=== PATIENT | female | born 1975 | race Caucasian/White ===

== ENCOUNTER → 2017-11-05 | Outpatient (CLI) | payer BC ==
--- NOTE | 2017-11-05 09:36 | CT ---
EXAMINATION TYPE: CT sinus wo con DATE OF EXAM: 11/05/2017 COMPARISON: CT sinuses 05-30-2007. HISTORY: Patient complains of chronic sinus pain, pressure, and drainage. Chronic sinusitis per order . CT DLP: 641.6 mGycm. Automated Exposure Control for Dose Reduction was Utilized. TECHNIQUE: CT scan of the sinuses is performed without contrast, axial images are obtained, coronal r eformatted images are also reviewed. FINDINGS: There is mild to minimal mucosal thickening involving maxillary sinuses bilaterally, right greater than left. Remainder paranasal sinuses are clear without suspicious opacification or air-flu id levels. The ostiomeatal complex is patent bilaterally on the coronal images. Visualized portion of mastoid air cells show no abnormal opacification. The globes are intact bilate rally. IMPRESSION: No significant acute paranasal sinus disease.
== END | disposition home or self-care (01) ==
LOC: RADCTMAIN 08:42
PROVIDERS: ATTEND Otolaryngology
DX: J32.9 Chronic sinusitis, unspecified (principal)
CPT/HCPCS: 70486

== ENCOUNTER → 2018-04-23 | Outpatient (CLI) | payer BC ==
--- NOTE | 2018-04-23 18:28 | ECHOF ---
Referral Reason:R07.89 chest pain MEASUREMENTS -------- HEIGHT: 170.2 cm WEIGHT: 83.9 kg BP: RVIDd: 2.9 cm (< 3.3) IVSd: 1.2 cm (0.6 - 1.1) LVIDd: 3.7 cm (3.9 - 5.3) LVPWd: 1.2 cm (0.6 - 1.1) IVSs: 1.7 cm LVIDs: 2.1 cm LVPWs: 1.6 cm LAESV Index (A-L): 15.32 ml/m Ao Diam: 2.5 cm (2.0 - 3.7) AV Cusp: 1.8 cm (1.5 - 2.6) LA Diam: 2.9 cm (2.7 - 3.8) MV EXCURSION: 13.666 mm (> 18.000) MV EF SLOPE: 109 mm/s (70 - 150) EPSS: 0.4 cm MV E Balta: 1.06 m/s MV DecT: 180 ms MV A Balta: 0.79 m/s MV E/A Ratio: 1.33 RAP: 5.00 mmHg RVSP: 25.74 mmHg FINDINGS -------- Sinus rhythm. This was a technically adequate study. The left ventricular size is normal. There is mild concentric left ventricular hypertrophy. Overa ll left ventricular systolic function is normal with, an EF between 55 - 60 %. The right ventricle is normal in size and function. Normal LA size by volume 22+/-6 ml/m2. The right atrium is normal in size. The aortic valve is trileaflet, and appears structurally normal. No aortic stenosis or regurgitation. The mitral valve leaflets are mildly thickened. There is trace to mild mitral regurgitation. Trace tricuspid regurgitation present. Right ventricular systolic pressure is normal at < 35 mmHg. There is no evidence of pulmonary hypertension. Trace/mild (physiologic) pulmonic regurgitation. The aortic root size is normal. Normal inferior vena cava with normal inspiratory collapse consistent with estimated right atrial pre ssure of 5 mmHg. There is no pericardial effusion. CONCLUSIONS -------- 1. Sinus rhythm. 2. This was a technically adequate study. 3. The left ventricular size is normal. 4. There is mild concentric left ventricular hypertrophy. 5. Overall left ventricular systolic function is normal with, an EF between 55 - 60 %. 6. Normal LA size by volume 22+/-6 ml/m2. 7. The aortic valve is trileaflet, and appears structurally normal. No aortic stenosis or regurgitati on. 8. The mitral valve leaflets are mildly thickened. 9. There is trace to mild mitral regurgitation. 10. Trace tricuspid regurgitation present. 11. Right ventricular systolic pressure is normal at < 35 mmHg. 12. There is no evidence of pulmonary hypertension. 13. Trace/mild (physiologic) pulmonic regurgitation. 14. The aortic root size is normal. 15. There is no pericardial effusion. CONDITIONER TENDER: José Miguel Cleveland RDCS
--- NOTE | 2018-04-24 09:19 | EST ---
EXERCISE STRESS AGE: 43 SEX: F HT: 5'7" WT: 185 PROTOCOL: Flavio. STAGE: II DURATION OF EXERCISE: 8:00. HEART RATE REST: 79 BLOOD PRESSURE REST: 122/82 MAXIMUM HEART RATE ACHIEVED: 160 MAXIMUM BLOOD PRESSURE: 208/76 85% MPHR: 150 100% MPHR: 177 METS: 9.7. INDICATIONS: CLINICAL INFORMATION: STRESS DATA: Pretesting physical examination showed a heart rate of 79, pressure is 122/82 mmHg. Baseline EKG showed sinus mechanism. The patient exercised on the treadmill according to Flavio protocol for a total of 8 minutes and achieved 9.7 METs. The max heart rate was 160, which is about 90% of maximum predicted heart rate. Maximum blood pressure was 208/76 mmHg. Clinically, the patient did not have any symptoms of chest pain or chest discomfort. The EKG on recovery showed about 0.[address]-segment changes. CONCLUSION: 1. Excellent exercise tolerance. 2. No symptoms of chest pain or chest discomfort in response to exercise. 3. Mild EKG changes and response to exercise. 4. A stress test with imaging modality is recommended for further clarification. MMODL / IJN: [id number] /
== END | disposition home or self-care (01) ==
LOC: RADNMMAIN 11:03
PROVIDERS: ATTEND Family Medicine
DX: I08.1 Rheumatic disorders of both mitral and tricuspid valves (principal); R94.31 Abnormal electrocardiogram [ECG] [EKG]; R07.89 Other chest pain
CPT/HCPCS: 93017; 93306

== ENCOUNTER 2018-08-25 10:19 | Emergency (ER) | payer BC, OTHER ==
--- NOTE | 2018-08-25 10:47 | ED ---
General Adult HPI - General Chief complaint: Abdominal Pain Stated complaint: kidney pain Time Seen by Provider: 08/25/18 10:46 Source: patient, RN notes reviewed Mode of arrival: ambulatory Limitations: no limitations - History of Present Illness Initial comments: 43-year-old female with a past medical history of asthma, hysterectomy presents to the emergency department for a chief complaint of left flank pain 5 hours. Patient states this is a sharp stabbing pain that radiates into her lower abdomen. Patient states she cannot comfortable. Patient admits to nausea but denies vomiting. She states she has dry heaved multiple times. Patient denies dysuria. She denies fevers or chills. Patient states she has intermittently noticed hematuria over the past few weeks. Patient has no other complaints at this time including shortness of breath, chest pain, headache, or visual changes. - Related Data Home Medications Medication Instructions Recorded Confirmed Aspirin/Acetaminophen/Caffeine 2 tab PO Q12H PRN 08/25/18 08/25/18 [Excedrin Migraine Caplet] Lisdexamfetamine Dimesylate 70 mg PO QAM 08/25/18 08/25/18 [Vyvanse] Previous Rx's Medication Instructions Recorded Cephalexin [Keflex] 500 mg PO Q6HR 5 Days cap 08/25/18 HYDROcodone/APAP 5-325MG [[place] 1 tab PO Q6HR PRN #10 tab 08/25/18 5-325] Ondansetron [Zofran ODT] 4 mg PO Q8HR PRN #15 tab 08/25/18 Tamsulosin [Flomax] 0.4 mg PO DAILY #10 cap 08/25/18 Allergies Allergy/AdvReac Type Severity Reaction Status Date / Time milk AdvReac Anaphylaxis Verified 08/25/18 14:31 wheat AdvReac Anaphylaxis Verified 08/25/18 14:31 Review of Systems ROS Statement: Those systems with pertinent positive or pertinent negative responses have been documented in the HPI. ROS Other: All systems not noted in ROS Statement are negative. Past Medical History Past Medical History: Asthma History of Any Multi-Drug Resistant Organisms: None Reported Past Surgical History: Section, Hysterectomy Additional Past Surgical History / Comment(s): Hip x 2, Sinus Past Psychological History: No Psychological Hx Reported Smoking Status: Never smoker Past Alcohol Use History: None Reported Past Drug Use History: None Reported General Exam Limitations: no limitations General appearance: alert, anxious Head exam: Present: atraumatic, normocephalic, normal inspection Eye exam: Present: normal appearance, PERRL, EOMI. Absent: scleral icterus, conjunctival injection, periorbital swelling ENT exam: Present: normal exam, mucous membranes moist Neck exam: Present: normal inspection, full ROM. Absent: tenderness, meningismus, lymphadenopathy Respiratory exam: Present: normal lung sounds bilaterally. Absent: respiratory distress, wheezes, rales, rhonchi, stridor Cardiovascular Exam: Present: regular rate, normal rhythm, normal heart sounds. Absent: systolic murmur, diastolic murmur, rubs, gallop, clicks GI/Abdominal exam: Present: soft, normal bowel sounds. Absent: distended, tenderness, guarding, rebound, rigid Back exam: Present: CVA tenderness (L) (Significant left CVA tenderness). Absent: CVA tenderness (R), vertebral tenderness (No vertebral or midline tenderness) Neurological exam: Present: alert, oriented X3, CN II-XII intact Psychiatric exam: Present: normal affect, normal mood Course Vital Signs 08/25/18 10:37 Temperature 96.7 F L Pulse Rate 55 L Respiratory 24 Rate Blood Pressure 106/67 O2 Sat by Pulse 99 Oximetry Medical Decision Making - Medical Decision Making 43-year-old female since to the emergency department for a chief complaint of left flank pain 6 hours. No history of kidney stones. No dysuria or fevers. On exam patient does have left CVA tenderness, no abdominal tenderness to palpation. CT did show a proximal 4.1 mm left ureter stone with additional stones noted within the kidneys. CBC shows a white count of 16.2 which is likely reactive. CMP is unremarkable. Patient does have small leukocyte esterase with 7 white blood cells, will be treated to cover urinary tract infection. Patient will be given pain medications and Zofran. Patient will follow up with urology in 1-2 days. She will return if she has any worsening symptoms. - Lab Data Result diagrams: 08/25/18 11:55 08/25/18 11:55 Lab Results 08/25/18 08/25/18 08/25/18 Range/Units 11:55 11:55 12:15 WBC 16.2 H (3.8-10.6) k/uL RBC 4.97 (3.80-5.40) m/uL Hgb 14.3 (11.4-16.0) gm/dL Hct 43.8 (34.0-46.0) % MCV 88.0 (80.0-100.0) fL MCH 28.8 (25.0-35.0) pg MCHC 32.8 (31.0-37.0) g/dL RDW 12.7 (11.5-15.5) % Plt Count 361 (150-450) k/uL Neutrophils % 93 % Lymphocytes % 3 % Monocytes % 3 % Eosinophils % 0 % Basophils % 0 % Neutrophils # 15.0 H (1.3-7.7) k/uL Lymphocytes # 0.5 L (1.0-4.8) k/uL Monocytes # 0.5 (0-1.0) k/uL Eosinophils # 0.0 (0-0.7) k/uL Basophils # 0.1 (0-0.2) k/uL Sodium 139 (137-145) mmol/L Potassium 4.8 (3.5-5.1) mmol/L Chloride 107 (98-107) mmol/L Carbon Dioxide 24 (22-30) mmol/L Anion Gap 8 mmol/L BUN 18 H (7-17) mg/dL Creatinine 0.98 (0.52-1.04) mg/dL Est GFR (CKD-EPI)AfAm 82 (>60 ml/min/1.73 sqM) Est GFR (CKD-EPI)NonAf 71 (>60 ml/min/1.73 sqM) Glucose 117 H (74-99) mg/dL Calcium 9.5 (8.4-10.2) mg/dL Total Bilirubin 1.1 (0.2-1.3) mg/dL AST 22 (14-36) U/L ALT 24 (9-52) U/L Alkaline Phosphatase 60 (38-126) U/L Total Protein 7.2 (6.3-8.2) g/dL Albumin 4.4 (3.5-5.0) g/dL Amylase <30 L (30-110) U/L Lipase 34 (23-300) U/L Urine Color Yellow Urine Appearance Clear (Clear) Urine pH 6.0 (5.0-8.0) Ur Specific [place] 1.020 (1.001-1.035) Urine Protein Trace H (Negative) Urine Glucose (UA) Negative (Negative) Urine Ketones 2+ H (Negative) Urine Blood Small H (Negative) Urine Nitrite Negative (Negative) Urine Bilirubin Negative (Negative) Urine Urobilinogen <2.0 (<2.0) mg/dL Ur Leukocyte Esterase Small H (Negative) Urine RBC 32 H (0-5) /hpf Urine WBC 7 H (0-5) /hpf Ur Squamous Epith Cells 3 (0-4) /hpf Urine Mucus Rare H (None) /hpf Disposition Clinical Impression: Ureterolithiasis Disposition: HOME SELF-CARE Condition: Good Instructions: Kidney Stones (ED) Additional Instructions: Please take [place] and Motrin for pain. Please take Zofran for nausea. Follow up with urology in 1-2 days. Take antibiotic as directed. Return to the emergency department if you have any worsening symptoms. Prescriptions: Cephalexin [Keflex] 500 mg PO Q6HR 5 Days cap HYDROcodone/APAP 5-325MG [[place] 5-325] 1 tab PO Q6HR PRN #10 tab PRN Reason: Pain Ondansetron [Zofran ODT] 4 mg PO Q8HR PRN #15 tab PRN Reason: Nausea Tamsulosin [Flomax] 0.4 mg PO DAILY #10 cap Is patient prescribed a controlled substance at d/c from ED?: No Referrals: Romeo Harrington DO [Primary Care Provider] - 1-2 days Alcon Montero MD [STAFF PHYSICIAN] - 1-2 days Time of Disposition: 14:37
[2018-08-25] MEDS ORDERED: ONDANSETRON 4 MG/2 ML VIAL IVP STA (11:03)
[2018-08-25] MEDS ORDERED: MORPHINE SULFATE 4 MG/ML SYRINGE IV STA (11:03)
[2018-08-25] MEDS ORDERED: SODIUM CHLORIDE 0.9% 1,000 ML IV STA ×2 (11:03→13:04)
[2018-08-25] MEDS ORDERED: KETOROLAC 30 MG/ML 1 ML VIAL IVP STA (11:03)
[2018-08-25 12:29] LABS: ALT 24 U/L (9-52); AST 22 U/L (14-36); Albumin 4.4 g/dL (3.5-5.0); Alkaline Phosphatase 60 U/L (38-126); Amylase <30 U/L (30-110); Anion Gap 8 mmol/L; Blood Urea Nitrogen 18 mg/dL (7-17); Calcium 9.5 mg/dL (8.4-10.2); Carbon Dioxide 24 mmol/L (22-30); Chloride 107 mmol/L (98-107); Glucose 117 mg/dL (74-99); Lipase 34 U/L (23-300); Potassium 4.8 mmol/L (3.5-5.1); Sodium 139 mmol/L (137-145); Total Bilirubin 1.1 mg/dL (0.2-1.3); Total Protein 7.2 g/dL (6.3-8.2)
[2018-08-25 12:40] LABS: Basophils # (A) 0.1 k/uL (0-0.2); Basophils % (A) 0 %; Eosinophils % (A) 0 %; HCT 43.8 % (34.0-46.0); HGB 14.3 gm/dL (11.4-16.0); Lymphocytes # (A) 0.5 k/uL (1.0-4.8); Lymphocytes % (A) 3 %; MCH 28.8 pg (25.0-35.0); MCHC 32.8 g/dL (31.0-37.0); Monocytes # (A) 0.5 k/uL (0-1.0); Monocytes % (A) 3 %; Neutrophils % (A) 93 %; Platelet Count 361 k/uL (150-450); RBC 4.97 m/uL (3.80-5.40); RDW 12.7 % (11.5-15.5); WBC 16.2 k/uL (3.8-10.6)
[2018-08-25 12:59] LABS: Appearance,Urine Clear (Clear); Bilirubin,Urine Negative (Negative); Blood,Urine Small (Negative); Color,Urine Yellow; Glucose,Urine (UA) Negative (Negative); Ketones,Urine 2+ (Negative); Leukocyte Esterase,Urine Small (Negative); Mucus,Urine Rare /hpf; Nitrite,Urine Negative (Negative); Protein,Urine Trace (Negative); RBC,Urine 32 /hpf (0-5); Squamous Epithelial Cell,Urine 3 /hpf (0-4); Urobilinogen,Urine <2.0 mg/dL (<2.0); WBC,Urine 7 /hpf (0-5)
--- NOTE | 2018-08-25 13:40 | CT ---
EXAMINATION TYPE: CT abdomen pelvis wo con DATE OF EXAM: 08/25/2018 COMPARISON: NONE HISTORY: Left flank pain CT DLP: 506.70 mGycm Automated exposure control for dose reduction was used. FINDINGS: Lungs are clear. There is no pleural or pericardial fluid. The heart is not enlarged. Within the abdomen, the liver is normal in size. The spleen and gallbladder are normal. Both adrenal glands are normal. Limited views of the pancreas are unremarkable. There is nonobstructing nephrolithiasis present bilaterally. There are approximately 3 calculi in the lower pole calyces of the right kidney with largest measuring 3 mm. There are approximately 4 calcul i on the left with the largest measuring 6 mm. There is mild left-sided hydronephrosis. There is a 4. 1 mm calculus in the proximal left ureter. A second small calcification in the left hemipelvis is patrick pected to be a phlebolith. A nonobstructing distal left calculus is not entirely excluded. There is no significant retroperitoneal, iliac or inguinal adenopathy. The bladder is unremarkable. The left side of the colon is largely collapsed. The appendix is not visualized with certainty. Small bowel loops are of normal caliber. There is no free fluid and no free air. There is an pelvic reconstruction. No acute bony lesion is seen. IMPRESSION: 1. PARTIALLY OBSTRUCTING, 4.1 MM PROXIMAL LEFT URETERIC CALCULUS CAUSING MILD TO MODERATE HYDRONEPHRO SIS ON THE LEFT. 2. BILATERAL, NONOBSTRUCTING NEPHROLITHIASIS. 3. POSTSURGICAL CHANGE INVOLVING THE PELVIS.
--- NOTE | 2018-08-25 14:59 | XR ---
EXAMINATION TYPE: XR KUB DATE OF EXAM: 08/25/2018 COMPARISON: NONE HISTORY: Kidney pain TECHNIQUE: 2 views FINDINGS: 2 upright views were obtained. Bowel gas pattern is normal. There is no sign of intestinal obstruction or pneumoperitoneum. There are multiple faint calcifications over the left kidney. There are are screws apparently from old osteotomies of the left and right iliac bone. There is no evidence of a mass. Lung bases are clear. IMPRESSION: Multiple left renal calculi. Nonacute abdomen.
[2018-08-25 15:35] VITALS: BP 129/80; PULSE 71; RESP 18; TEMP 98.2
== END 2018-08-25 15:35 | disposition home or self-care (01) ==
LOC: EC 10:19
DX: N13.2 Hydronephrosis with renal and ureteral calculous obstruction (principal); Z79.899 Other long term (current) drug therapy; Z91.011 Allergy to milk products; Z91.018 Allergy to other foods; Z90.710 Acquired absence of both cervix and uterus
CPT/HCPCS: 36415; 80053; 82150; 83690; 85025; 81001; 87086; 74018; 74176; 99284; 96374; 96375 ×2; 96361 ×3; J2270; J2405; J1885

== ENCOUNTER 2018-09-02 08:33 | Day surgery (SDC) | payer OTHER ==
[2018-08-30 08:45] VITALS: BMI 27.3
--- NOTE | 2018-09-01 12:31 | P.GSHP ---
History of Present Illness H&P Date: 09/01/18 43 yo female with a 4mm left proximal ureteral stone who comes for eswl left. This is her first stone SHe has multiple tiny stones in the lower pole of each kidney. - Constitutional Constitutional: Denies chills, Denies fever - EENT Eyes: denies blurred vision, denies pain Ears, nose, mouth and throat: Denies headache, Denies sore throat - Cardiovascular Cardiovascular: Denies chest pain, Denies shortness of breath - Respiratory Respiratory: Denies cough, Denies 7 - Gastrointestinal Gastrointestinal: Denies abdominal pain, Denies diarrhea, Denies nausea, Denies vomiting - Genitourinary (Female) Genitourinary: Reports as per HPI, Denies dysuria, Denies hematuria - Genitourinary (Male) Genitourinary: Denies dysuria, Denies hematuria - Musculoskeletal Musculoskeletal: Denies myalgias - Integumentary Integumentary: Denies pruritus, Denies rash - Neurological Neurological: Denies numbness, Denies weakness - Psychiatric Psychiatric: Denies anxiety, Denies depression - Endocrine Endocrine: Denies fatigue, Denies weight change Past Medical History Past Medical History: Asthma Additional Past Medical History / Comment(s): KIDNEY STONES History of Any Multi-Drug Resistant Organisms: None Reported Past Surgical History: Section, Hysterectomy, Orthopedic Surgery Additional Past Surgical History / Comment(s): Hip x 2, Sinus Past Anesthesia/Blood Transfusion Reactions: Motion Sickness, Postoperative Nausea & Vomiting (PONV) Smoking Status: Never smoker - Past Family History Brother(s) Family Medical History: Cancer Medications and Allergies Home Medications Medication Instructions Recorded Confirmed Type Aspirin/Acetaminophen/Caffeine 2 tab PO Q12H PRN 08/25/18 08/30/18 History [Excedrin Migraine Caplet] HYDROcodone/APAP 5-325MG [[place] 1 tab PO Q6HR PRN #10 tab 08/25/18 08/30/18 Rx 5-325] Lisdexamfetamine Dimesylate 70 mg PO QAM 08/25/18 08/30/18 History [Vyvanse] Ondansetron [Zofran ODT] 4 mg PO Q8HR PRN #15 tab 08/25/18 08/30/18 Rx Tamsulosin [Flomax] 0.4 mg PO DAILY #10 cap 08/25/18 08/30/18 Rx Allergies Allergy/AdvReac Type Severity Reaction Status Date / Time milk AdvReac Anaphylaxis Verified 08/30/18 08:36 wheat AdvReac Anaphylaxis Verified 08/30/18 08:36 Surgical - Exam - General well developed, well nourished, no distress - Eyes PERRL - ENT no hearing loss - Neck trachea midline - Respiratory normal expansion, normal respiratory effort - Cardiovascular Rhythm: irregularly irregular - Abdomen Abdomen: soft, non tender - Integumentary no rash, no growths - Neurologic normal coordination, normal sensation - Musculoskeletal normal gait, normal posture - Psychiatric oriented to time, oriented to person, oriented to place, speech is normal, memory intact Results - Imaging CT scan - abdomen: report reviewed, image reviewed CT scan - pelvis: report reviewed, image reviewed Assessment and Plan Assessment: Impression: Left ureteral stone, 4 mm proximal left ureter. Bilateral renal stones asx. Plan: Eswl left to proximal ureteral stone
[~2018-09-02 08:33] MED LIST: LACTATED RINGERS 1,000 ML IV SCH; Pre Op ABX Message 1 EACH MISC MISCELLANE ONE
--- NOTE | 2018-09-02 08:45 | XR ---
EXAMINATION TYPE: XR KUB DATE OF EXAM: 09/02/2018 8:35 AM CLINICAL HISTORY: Kidney stones, presurgical study. TECHNIQUE: Two supine KUB images of the abdomen are obtained. COMPARISON: Abdominal x-ray and CT abdomen and pelvis from 8 days earlier. FINDINGS: Roughly 5-6 small left-sided renal calculi on CT are less well seen on plain films due to m ottled overlying fecal material but are likely stable including roughly 6 mm proximal left ureter felix culus near L4 transverse process. Roughly 4 small calculi through right kidney also are seen better o n CT versus plain films are identified near the L3-L4 disc space medially near region of L3 transvers e process. Extensive surgical change to bilateral iliac bones is redemonstrated. There is overall nonobstructive bowel gas pattern. Spurring and deformity superior acetabulum bilaterally is redemonstrated. Old hea led fracture of right superior pelvic ramus is noted. IMPRESSION: Stable bilateral nephrolithiasis including proximal ureter calculus left kidney measuring roughly [address]
[2018-09-02] MEDS ORDERED: LACTATED RINGERS 1,000 ML IV ONE ×4 (08:51→13:30)
[2018-09-02] MEDS ORDERED: LIDOCAINE 1% 20 ML VIAL (10MG/ML) FOR IV START INTRADERMA ONE (08:51)
[2018-09-02] MEDS ORDERED: ONDANSETRON 4 MG/2 ML VIAL IVP ONE (09:00)
[2018-09-02] MEDS ORDERED: fentaNYL (PF) 50 MCG/ML 2 ML AMP ONE ×2 (09:30→11:52)
[2018-09-02] MEDS ORDERED: MIDAZOLAM 2 MG/2 ML VIAL ONE ×2 (09:30→11:52)
[2018-09-02] MEDS ORDERED: ONDANSETRON 4 MG/2 ML VIAL ONE (09:30)
[2018-09-02] MEDS ORDERED: IOPAMIDOL-370 50ML BTL MISCELLANE ONE (11:47)
[2018-09-02] MEDS ORDERED: KETOROLAC 30 MG/ML 1 ML VIAL ONE (11:52)
[2018-09-02] MEDS ORDERED: PROPOFOL 10 MG/ML 20 ML VIAL IV ONE (11:52)
[2018-09-02] MEDS ORDERED: LIDOCAINE 1% INJ 10MG/ML (20 ML MDV) ONE (11:52)
[2018-09-02] MEDS ORDERED: SODIUM CHLORIDE 0.9% 50 ML with ceFAZolin 2,000 MG IV ONE ×2 (12:11)
--- NOTE | 2018-09-02 13:18 | P.OP ---
Date of Procedure: 09/02/18 Preoperative Diagnosis: Left ureteral calculus, left renal calculi Postoperative Diagnosis: Same Procedure(s) Performed: Cystoscopy, left ureteroscopy with Holmium laser lithotripsy, left ureteral stent insertion Anesthesia: RYANA Surgeon: Hung Connor Estimated Blood Loss (ml): 0 IV fluids (ml): 500 Pathology: none sent Condition: stable Disposition: PACU Indications for Procedure: The patient is a 43-year-old white female with recent left renal colic due to a 5 mm left proximal ureteral calculus. She was also noted to have several left renal calculi. She was scheduled to undergo ESWL, but the ureteral calculus could not be seen on fluoroscopy. It was thus decided to perform ureteroscopic calculi instead. Operative Findings: Left proximal ureteral calculus. Multiple left renal calculi. All calculi fragmented to completion. Description of Procedure: The patient was taken to the operating room and placed in the dorsolithotomy position, with legs supported in Brandon stirrups. The external genitalia was prepped and draped sterilely. The 30 lens was used to introduce the 22-Andorran Stortz cystoscopic sheath through the urethra and into the bladder under direct vision. The bladder was examined in its entirety. Both ureteral orifices were normal anatomic location and configuration. The entire bladder was examined. No tumors or foreign bodies were seen. A 0.038 inch Glidewire was passed through the cystoscope. The left ureteral orifice was cannulated, and the Glidewire was advanced up to the left renal pelvis. An 11/13-And[place]ran ureteral access catheter was passed over the wire, up to the mid ureter. The Olympus flexible ureteroscope was passed through the ureteral access catheter sheath and was advanced under direct vision. The calculus was identified. The 200 micron Holmium laser probe was passed through the ureteroscope, and lithotripsy was performed. After fragmenting the ureteral calculus, the ureteroscope was advanced up to the left renal pelvis. Two upper pole calculi were identified, both of which were laser fragmented to completion. Attention was then paid to the lower pole calyces. 3 calculi were seen and fragmented to completion. Lithotripsy was continued until all calculus fragments were no larger than 1-2 mm in diameter. The ureteroscope was then removed. The Glidewire was passed through the ureteral access cath sheath, and the sheath was removed. The Glidewire was backloaded into the cystoscope, which was passed into the bladder. A 26 cm, 4.8-Andorran double-J ureteral stent was placed over the wire. Proper stent positioning was verified fluoroscopically and endoscopically. The bladder was emptied and the cystoscope removed. The patient tolerated the procedure well and was taken to the recovery room in stable condition.
[2018-09-02 13:34] VITALS: TEMP 97
[2018-09-02 13:40] VITALS: RESP 16
[2018-09-02 14:00] VITALS: PULSE 59
[2018-09-02 14:52] VITALS: BP 155/81
--- NOTE | 2018-09-02 15:01 | FL ---
EXAMINATION TYPE: FL cystogram DATE OF EXAM: 09/02/2018 COMPARISON: CT abdomen pelvis from January days ago HISTORY: Obstructing left ureter calculus TECHNIQUE: Fluoroscopy. FINDINGS: Fluoroscopic guidance was provided during ureter stent insertion procedure performed by Dr Manjinder Connor. A total of 340 seconds of fluoroscopic time was utilized during the procedure and single s pot fluoroscopic image is acquired. Single image acquired shows proximal portion of the ureter stent. IMPRESSION: As Above.
== END 2018-09-02 15:07 | disposition home or self-care (01) ==
LOC: ORWHC2ENDO 08:33
PROVIDERS: ATTEND Urology
DX: N20.2 Calculus of kidney with calculus of ureter (principal); J45.909 Unspecified asthma, uncomplicated; Z79.899 Other long term (current) drug therapy; Z87.442 Personal history of urinary calculi; Z79.891 Long term (current) use of opiate analgesic; Z91.018 Allergy to other foods
CPT/HCPCS: 74430; 74018; 52356; C2625; C1758; C1769 ×2; J2250; J2405; J2001; J3010; J1885; J0690; J2704

== ENCOUNTER → 2018-09-06 | Outpatient (CLI) | payer OTHER ==
--- NOTE | 2018-09-06 08:51 | XR ---
EXAMINATION TYPE: XR abdomen 1V DATE OF EXAM: 09/06/2018 HISTORY: Pain Comparison: 09/02/2018 Single KUB is submitted for interpretation. Findings: Right renal calculi: None Visualized. Right ureteral calculi: None Visualized. Left renal calculi: There is left-sided nephrolithiasis. Mid pole calculus measures 5.9 mm with an a djacent calculus noted to measure 3.6 mm. Several small left lower pole calculi measuring up to 2.8 m m. Left ureteral calculi: Interval placement of a double pigtail left ureteral stent. Placement is appr opriate. No calcific density along the course of the left-sided stent. Pelvic calcifications: None Visualized. Bowel gas pattern is unremarkable. No free air. No mass effects. IMPRESSION: 1. Left-sided nephrolithiasis and left ureteral stent.
== END | disposition home or self-care (01) ==
LOC: RADXRMAIN 08:31
PROVIDERS: ATTEND Urology
DX: N20.0 Calculus of kidney (principal); Z96.0 Presence of urogenital implants
CPT/HCPCS: 74018

== ENCOUNTER 2021-03-07 06:27 | Day surgery (SDC) | payer OTHER ==
[2021-03-03 12:28] VITALS: BMI 28.1
[~2021-03-07 06:27] MED LIST changes: +DEXAMETHASONE SOD PHOSPHATE 4 MG/ML 1 ML VIAL IV ONE; +HEPARIN SODIUM,PORCINE/PF 5,000 UNIT/0.5 ML SYRINGE SQ PRN; +HYDROmorphone 0.5 MG/0.5 ML SYRINGE IVP PRN; +ONDANSETRON 4 MG/2 ML VIAL IVP ONE
--- NOTE | 2021-03-07 07:11 | P.GSHP ---
History of Present Illness H&P Date: 03/07/21 CHIEF COMPLAINT: Scalp mass HISTORY OF PRESENT ILLNESS: The patient is a 46 year-old female with history of cyst on the scalp. She presents today for surgical excision. PAST MEDICAL HISTORY: Please see list. PAST SURGICAL HISTORY: Please see list. MEDICATIONS: Please see list. ALLERGIES: Please see list. SOCIAL HISTORY: No illicit drug use FAMILY HISTORY: No reports of Crohn disease or ulcerative colitis. REVIEW OF ORGAN SYSTEMS: CONSTITUTIONAL: No reports of fevers or chills. GI: Denies any blood in stools or constipation. PHYSICAL EXAM: VITAL SIGNS: Stable Musculoskeletal: No clubbing cyanosis or edema GENERAL: Well developed and in no acute distress. Pleasant. HEENT: No sclera icterus. Extraocular movements grossly intact. Moist buccal mucosa. Head is atraumatic, normocephalic. Hears conversational speech. No nasal drainage. Skin: 3 cm lesion along the mid scalp and a 4 cm lesion along the frontal hair line. Lesions are fixed and not easily mobile. NECK: Supple without lymphadenopathy. No JV distention. CHEST: Non-labored respirations and equal bilateral excursions. CARDIOVASCULAR: Regular rate and rhythm. Palpable 2+ radial pulses. ABDOMEN: Soft. Non-tender. Nondistended. NEUROLOGIC: No focal or lateralizing signs. PSYCH: Appropriate affect. Alert and oriented to person, place and time. ASSESSMENT: 1. Pilar cyst x2. PLAN: 1. Excision of pilar cyst was described. Risk of hair loss and alopecia was also reviewed. 2. Time of recovery at least one week was described. 3. Wound care instructions using Bacitracin ointment was reviewed. Avoiding hair dye for 2-3 weeks was also described. 4. Proceeding under sedation versus LMA was also reviewed. Past Medical History Past Medical History: Asthma, Pneumonia Additional Past Medical History / Comment(s): hx KIDNEY STONES, occ migraines, heart murmer, History of Any Multi-Drug Resistant Organisms: None Reported Past Surgical History: Section, Hysterectomy, Orthopedic Surgery Additional Past Surgical History / Comment(s): surgery to remove kidney stone, charline hip reconstruction hip sockets, sinus surgery, C/S x 2 Past Anesthesia/Blood Transfusion Reactions: Motion Sickness, Postoperative Nausea & Vomiting (PONV) Smoking Status: Never smoker - Past Family History Brother(s) Family Medical History: Cancer Medications and Allergies Home Medications Medication Instructions Recorded Confirmed Type Aspirin/Acetaminophen/Caffeine 2 tab PO Q12H PRN 08/25/18 03/03/21 History [Excedrin Migraine Caplet] Lisdexamfetamine Dimesylate 70 mg PO QAM 08/25/18 03/07/21 History [Vyvanse] ALPRAZolam [Xanax] 1 mg PO TID PRN 03/03/21 03/07/21 History Cetirizine HCl [Zyrtec] 10 mg PO HS 03/03/21 03/07/21 History Furosemide [Lasix] 20 mg PO DAILY PRN 03/03/21 03/07/21 History Proair Inhaler 2 appful IH QID PRN 03/03/21 03/07/21 History Allergies Allergy/AdvReac Type Severity Reaction Status Date / Time milk AdvReac Anaphylaxis Verified 03/03/21 12:18 wheat AdvReac Anaphylaxis Verified 03/03/21 12:18 Surgical - Exam Vital Signs Temp Pulse Resp BP Pulse Ox 98.0 F 78 16 151/86 97 03/07/21 06:53 03/07/21 06:53 03/07/21 06:53 03/07/21 06:53 03/07/21 06:53
[2021-03-07] MEDS ORDERED: LIDOCAINE 1%-EPI 1:100,000 20 ML VIAL SQ ONE ×2 (07:29→08:08)
[2021-03-07] MEDS ORDERED: BACITRACIN ZINC 500 UNIT/GM OINT 28.4 GM TUBE TOPICAL ONE (08:08)
[2021-03-07] MEDS ORDERED: fentaNYL (PF) 50 MCG/ML 2 ML AMP ONE (08:51)
[2021-03-07] MEDS ORDERED: PROPOFOL 10 MG/ML 20 ML VIAL IV ONE (08:51)
[2021-03-07] MEDS ORDERED: LIDOCAINE 1% INJ 10MG/ML (20 ML MDV) ONE (08:51)
[2021-03-07] MEDS ORDERED: SUCCINYLCHOLINE CHLORIDE 100 MG/5 ML SYR IV ONE (08:51)
[2021-03-07] MEDS ORDERED: MIDAZOLAM 2 MG/2 ML VIAL ONE (08:51)
[2021-03-07 08:53] VITALS: TEMP 97
[2021-03-07] MEDS ORDERED: SCOPOLAMINE 1.5MG/72HR PATCH TRANSDERM PRN (08:53)
[2021-03-07] MEDS ORDERED: DEXAMETHASONE SOD PHOSPHATE 10 MG/ML 1 ML VIAL IV PRN (08:53)
[2021-03-07 09:02] VITALS: RESP 16
--- NOTE | 2021-03-07 09:03 | P.OP ---
Date of Procedure: 03/07/21 Description of Procedure: SURGEON: BRITTANY JONES MD PREOPERATIVE DIAGNOSES: 1. Anterior parietal scalp tumor, 4 cm 2. Posterior parietal scalp tumor, 2 cm 3. Migraines 4. Asthma POSTOPERATIVE DIAGNOSES: 1. Anterior parietal scalp tumor, 4 cm 2. Posterior parietal scalp tumor, 2 cm 3. Migraines 4. Asthma PROCEDURES PERFORMED: 1. Excision of anterior parietal scalp tumor, 4 cm, fascia with intermediate closure, 4-cm 2. Excision of posterior parietal scalp tumor, 2 cm fascia with intermediate closure, 2-cm Anesthesia: GETA, local Estimated Blood Loss (ml): 20 Pathology: other (anterior and posterior scalp mass) Condition: stable Disposition: same day COMPLICATIONS: None. Operative Findings: 1. Excision of fascial scalp tumors with skin flaps for closure 4 cm and 2 cm. INDICATIONS: The patient is a 46-year-old female who presents with scalp tumors. Benefits and risks of surgical intervention were described including bleeding, infection. Informed consent was obtained. DESCRIPTION OR PROCEDURE: In the preoperative area, the area of concern was marked with indelible marker. Patient was brought into the operating room in supine position. After general induction, the scalp was prepped and draped in a standard sterile fashion with betadine and hibiclens. Timeout protocol was confirmed with the surgical team regarding the patient's name, procedure to be performed including preoperative medications. A field block was placed of the anterior and posterior parieteal scalp tumors of 4-cm and 2-cm. Longitudinal incisions using #15 blade were made along the markings into the deep subcutaneous tissue. All tumors extended to the fascia with dissection and elevation of the tumors. Hemostasis was checked with gauze without use of cautery. Skin flaps were re-approximated for each incision using running suture of 3-0 Prolene. The scalp was washed with hibiclens. The skin was cleansed with hydrogen peroxide followed by bacitracin ointment along the closure. At the end of the procedure, needle, sponge, and instrument count was verified correct by surgical services assistant. The patient tolerated the procedure well. Plan - Discharge Summary Discharge Rx Participant: Yes New Discharge Prescriptions: New Ibuprofen [Motrin] 600 mg PO Q8HR PRN #30 tab PRN Reason: Pain Acetaminophen Tab [Tylenol Tab] 1,000 mg PO Q6HR PRN #30 tablet PRN Reason: Pain Continue Lisdexamfetamine Dimesylate [Vyvanse] 70 mg PO QAM Aspirin/Acetaminophen/Caffeine [Excedrin Migraine Caplet] 2 tab PO Q12H PRN PRN Reason: Migraine Headache Furosemide [Lasix] 20 mg PO DAILY PRN PRN Reason: Edema Cetirizine HCl [Zyrtec] 10 mg PO HS ALPRAZolam [Xanax] 1 mg PO TID PRN PRN Reason: Anxiety Proair Inhaler 2 appful IH QID PRN PRN Reason: sob Discharge Medication List Aspirin/Acetaminophen/Caffeine [Excedrin Migraine Caplet] 2 tab PO Q12H PRN 08/25/18 [History] Lisdexamfetamine Dimesylate [Vyvanse] 70 mg PO QAM 08/25/18 [History] ALPRAZolam [Xanax] 1 mg PO TID PRN 03/03/21 [History] Cetirizine HCl [Zyrtec] 10 mg PO HS 03/03/21 [History] Furosemide [Lasix] 20 mg PO DAILY PRN 03/03/21 [History] Proair Inhaler 2 appful IH QID PRN 03/03/21 [History] Acetaminophen Tab [Tylenol Tab] 1,000 mg PO Q6HR PRN #30 tablet 03/07/21 [Rx] Ibuprofen [Motrin] 600 mg PO Q8HR PRN #30 tab 03/07/21 [Rx] Follow up Appointment(s)/Referral(s): Brittany Jones MD [STAFF PHYSICIAN] - 03/15/21 Patient Instructions/Handouts: Scalp Lesion (GEN), Cold Compress or Soak (DC) Activity/Diet/Wound Care/Special Instructions: EXPECT BRUISING FOR 1 WEEK Sleep on elevated pillow at least 2-3 Diet as tolerated Use Tylenol scheduled for the next 24-48 hours for best pain relief. Use ice along incisions for today to prevent swelling. Discharge Disposition: HOME SELF-CARE
[2021-03-07 10:12] VITALS: BP 150/93; PULSE 77
== END 2021-03-07 10:36 | disposition home or self-care (01) ==
LOC: OR 06:27
PROVIDERS: ATTEND Surgery Plastic and Reconstructive Surgery
DX: L72.11 Pilar cyst (principal); J45.909 Unspecified asthma, uncomplicated; G43.909 Migraine, unspecified, not intractable, without status migrainosus; Z79.82 Long term (current) use of aspirin; Z79.899 Other long term (current) drug therapy; Z91.011 Allergy to milk products; Z91.018 Allergy to other foods
CPT/HCPCS: 88304; 11426; 12032; J2250; J1100; J0690; J2405; J2001; J3010; J0330; J2704; J1644

== ENCOUNTER → 2021-07-19 | Outpatient (CLI) | payer OTHER ==
--- NOTE | 2021-07-19 15:09 | EST ---
EXERCISE STRESS AGE: 46 SEX: F HT: 67" WT: 190 lbs. PROTOCOL: Flavio STAGE: 3 DURATION OF EXERCISE: 7:00 HEART RATE REST: 65 BLOOD PRESSURE REST: 148/93 MAXIMUM HEART RATE ACHIEVED: 159 MAXIMUM BLOOD PRESSURE: 196/115 85% MPHR: 148 100% MPHR: 174 METS: 8.9 INDICATIONS: Chest pain. STRESS DATA: Heart rate 65, pressure is 148/93 mmHg. Baseline EKG showed sinus mechanism. The patient exercised on the treadmill according to Flavio protocol for a total of 7 minutes and achieved 8.9 METS. Max heart rate was 161, which is about 93% of maximum predicted heart rate with maximum blood pressure of 196/115 mmHg. Clinically the patient developed chest tightness in response to exercise. The EKG showed ST changes concerning for ischemia. CONCLUSION: 1. Good exercise tolerance. 2. Chest discomfort in response to exercise. 3. Abnormal EKG in response to exercise. 4. Overall abnormal stress test for the patient. 5. Dr. Harrington was notified via phone. MMODL / IJN: [id number] /
== END | disposition home or self-care (01) ==
LOC: RADNMMAIN 08:30
PROVIDERS: ATTEND Family Medicine
DX: R94.31 Abnormal electrocardiogram [ECG] [EKG] (principal)
CPT/HCPCS: 93017

== ENCOUNTER → 2021-08-15 | Outpatient (CLI) | payer OTHER ==
[2021-08-15 09:46] LABS: African American GFR (CKD) >90 (>60 ml/min/1.73 sqM); Anion Gap 6 mmol/L; Blood Urea Nitrogen 15 mg/dL (7-17); Carbon Dioxide 27 mmol/L (22-30); Chloride 105 mmol/L (98-107); Non-African American GFR(CKD) 89 (>60 ml/min/1.73 sqM); Potassium 4.5 mmol/L (3.5-5.1); Sodium 138 mmol/L (137-145)
[2021-08-15 10:28] LABS: HCT 43.9 % (34.0-46.0); HGB 15.2 gm/dL (11.4-16.0); MCH 30.5 pg (25.0-35.0); MCHC 34.5 g/dL (31.0-37.0); MCV 88.3 fL (80.0-100.0); Mean Platelet Volume 8.1; Platelet Count 353 k/uL (150-450); RBC 4.97 m/uL (3.80-5.40); RDW 13.1 % (11.5-15.5); WBC 7.6 k/uL (3.8-10.6)
== END | disposition home or self-care (01) ==
LOC: LABPAT 08:45
PROVIDERS: ATTEND Internal Medicine Interventional Cardiology
DX: Z01.812 Encounter for preprocedural laboratory examination (principal); R07.9 Chest pain, unspecified
CPT/HCPCS: 80051; 82565; 84520; 85027

== ENCOUNTER 2021-08-19 06:33 | Day surgery (SDC) | payer OTHER ==
[2021-08-17 10:27] VITALS: BMI 29.7
[~2021-08-19 06:33] MED LIST changes: +ALPRAZolam 0.25 MG TAB PO PRN; +ALPRAZolam 0.5 MG TAB PO PRN; +ASPIRIN 325 MG TAB PO STA; -DEXAMETHASONE SOD PHOSPHATE 4 MG/ML 1 ML VIAL IV ONE; +HEPARIN SODIUM,PORCINE 10,000 UNIT in SODIUM CHLORIDE 0.9% 1,000 ML IRRIGATION PRN; +HEPARIN SODIUM,PORCINE 2,500 UNIT in SODIUM CHLORIDE 0.9% 250 ML IRRIGATION PRN; -HEPARIN SODIUM,PORCINE/PF 5,000 UNIT/0.5 ML SYRINGE SQ PRN; -HYDROmorphone 0.5 MG/0.5 ML SYRINGE IVP PRN; -LACTATED RINGERS 1,000 ML IV SCH; +NITROGLYCERIN SL TABS 0.4 MG TAB SUBLINGUAL PRN; -ONDANSETRON 4 MG/2 ML VIAL IVP ONE; -Pre Op ABX Message 1 EACH MISC MISCELLANE ONE; +SODIUM CHLORIDE 0.9% 1,000 ML in EMPTY BAG 1 BAG IV SCH
[2021-08-19] MEDS ORDERED: LIDOCAINE 1% INJ 10MG/ML (20 ML MDV) ONE (07:10)
[2021-08-19] MEDS ORDERED: VERAPAMIL 2.5 MG/ML 2 ML AMP ONE (07:10)
[2021-08-19 07:16] VITALS: RESP 16; TEMP 98.3
[2021-08-19] MEDS ORDERED: LIDOCAINE 1% INJ 10MG/ML (20 ML MDV) SQ ONE (07:36)
[2021-08-19] MEDS ORDERED: VERAPAMIL SYRINGE (5 MG/10 ML) INTRAARTER ONE (07:37)
[2021-08-19] MEDS ORDERED: .fentaNYL (PF) 50 MCG/ML 2 ML AMP IV ONE (07:37)
[2021-08-19] MEDS ORDERED: MIDAZOLAM 2 MG/2 ML VIAL IV ONE (07:37)
[2021-08-19] MEDS ORDERED: HEPARIN SODIUM 1,000 UN/ML (10ML VL) ONE (07:43)
[2021-08-19] MEDS ORDERED: HEPARIN SODIUM 1,000 UN/ML (10ML VL) IV ONE (07:45)
[2021-08-19] MEDS ORDERED: IOPAMIDOL-370 125ML BTL INJ ONE (07:57)
[2021-08-19] MEDS ORDERED: RX INFO: IV CONTRAST WAS GIVEN 1 EACH MISC MISCELLANE PRN (08:11)
[2021-08-19] MEDS ORDERED: SODIUM CHLORIDE 0.9% 1,000 ML IV SCH (08:15)
--- NOTE | 2021-08-19 08:45 | CC ---
CARDIAC CATHETERIZATION REPORT Mrs. Beltran is a 46-year-old female with history of hypertension who has been complaining of chest discomfort with physical activity. She underwent a stress test that showed evidence of stress-induced ischemia. In view of that, recommendation was made regarding cardiac catheterization. The procedure as well as risks and complications were discussed with the patient, who was in full understanding and agreement. PROCEDURE DESCRIPTION: Patient was brought to the slabber in a fasting, semi-sedated state after receiving fentanyl and Benadryl and achieving a moderate conscious sedated state. Using Xylocaine anesthesia and Seldinger technique, a 6-Vietnamese sheath was introduced in the right radial artery. Selective right and left coronary angiography was performed using 5-Vietnamese 3.5 bend right and left Sariah catheters. Multiple views were taken of the arteries, including hemiaxial views. The right Sariah catheter was used to cross the aortic valve and left ventricular end-diastolic was calculated. Following that, catheter and sheath were removed. Hemostasis was obtained with deployment of a TR band. There was no immediate complication. The patient was returned to her room in stable condition. FINDINGS: LEFT MAIN: This is a short-sized vessel bifurcating into left circumflex and left anterior descending artery. Left main coronary artery has no evidence of high-grade stenosis. LEFT ANTERIOR DESCENDING ARTERY: This is a large-sized vessel reaching to the apex with a wrap around apex segment giving rise to one moderately sized diagonal branch in the mid segment. The left anterior descending artery as well as its branches have no evidence of obstructive coronary artery disease. LEFT CIRCUMFLEX: This is a nondominant vessel, large in caliber, giving rise to two obtuse marginal branches. The left circumflex as well as its branches have no evidence of obstructive coronary artery disease. RIGHT CORONARY ARTERY: This is a large dominant vessel bifurcating distally into PDA and posterolateral segment and branches. The right coronary artery as well as its branches have no evidence of obstructive coronary artery disease. LEFT VENTRICULOGRAM: Left ventriculogram was not performed. HEMODYNAMICS: There was no gradient across the aortic valve. The left ventricular end- diastolic pressure was 14 to 16 mmHg. CONCLUSION: 1. Normal coronary arteries. 2. Right dominance. RECOMMENDATION: In view of findings and anatomy, I have recommended continued medical therapy with the aggressive coronary risk modifications that have been initiated. Those findings and recommendations were discussed with the patient and her family, and they are in full understanding and agreement. Duration of sedation was 15 minutes. MMODL / IJN: [id number] /
[2021-08-19] MEDS ORDERED: NEBIVOLOL 5 MG TAB PO SCH (18:30)
[2021-08-19 19:01] VITALS: BP 134/78; PULSE 62
[2021-08-20] MEDS ORDERED: ASPIRIN 81 MG PO SCH (09:00)
== END 2021-08-19 12:07 | disposition home or self-care (01) ==
LOC: CATHCVL 06:33
PROVIDERS: ATTEND Internal Medicine Interventional Cardiology
DX: R94.39 Abnormal result of other cardiovascular function study (principal); R07.89 Other chest pain; I10 Essential (primary) hypertension; Z86.16 Personal history of COVID-19; Z79.899 Other long term (current) drug therapy; Z87.891 Personal history of nicotine dependence; Z20.822 Contact with and (suspected) exposure to COVID-19
CPT/HCPCS: 93458; 87635; C1894; C1769; J2250; J2001; J3010; J1644; Q9967

== ENCOUNTER → 2023-01-26 | Outpatient (CLI) | payer OTHER ==
--- NOTE | 2023-01-26 09:15 | CT ---
EXAMINATION TYPE: CT sinus wo con DATE OF EXAM: 01/26/2023 COMPARISON: 11/05/2017 HISTORY: 48-year-old female J32.0, Chronic maxillary sinusitis CT DLP: 481.20 mGycm. Automated Exposure Control for Dose Reduction was Utilized. TECHNIQUE: CT scan of the sinuses is performed without contrast, axial images are obtained, coronal/s agittal reformatted images are also reviewed. FINDINGS: PARANASAL SINUSES: There is trace to mild mucosal thickening within the maxillary sinuses. Frontal, sphenoid, and ethmoid sinuses are well pneumatized. There is no air-fluid level. Reactive aura- osteogenesis is not seen. There is no destruction of the osseous snow of the paranasal sinuses. THE NASAL CAVITY: The osteomeatal complexes are patent. The nasal septum is not deviated. The imaged brain and orbits are normal in appearance. Mastoid air cells and middle ear cavities are well pneumatized. Reformatted images confirm above findings. IMPRESSION: Mild chronic bilateral maxillary sinus disease characterized by some mucosal thickening.
== END | disposition home or self-care (01) ==
LOC: RADCTMAIN 08:32
PROVIDERS: ATTEND Otolaryngology
DX: J32.0 Chronic maxillary sinusitis (principal); J34.89 Other specified disorders of nose and nasal sinuses
CPT/HCPCS: 70486

== ENCOUNTER → 2023-01-26 | Outpatient (CLI) | payer OTHER | END | disposition home or self-care (01) | LOC: LABWHC1 08:54 | PROVIDERS: ATTEND Otolaryngology | DX: L50.0 Allergic urticaria (principal); J30.89 Other allergic rhinitis; B44.89 Other forms of aspergillosis | CPT/HCPCS: 36415; 86001 ==

== ENCOUNTER 2023-08-15 07:38 | Emergency (ER) | payer OTHER ==
--- NOTE | 2023-08-15 07:42 | ED ---
General Adult HPI - General Stated complaint: Abd Pain, Back Pain Time Seen by Provider: 08/15/23 07:41 Source: patient, RN notes reviewed Mode of arrival: ambulatory Limitations: no limitations - History of Present Illness Initial comments: 48-year-old female presents emergency Department chief complaint of flank pain. Patient states she does feel bilaterally but slightly worse than the right. Patient states his started on Sunday and has worsened. Patient states she does have a history kidney stone. Patient states pain feels very similar to her prior kidney stones. Denies fevers or chills. - Related Data Home Medications Medication Instructions Recorded Confirmed Aspirin/Acetaminophen/Caffeine 2 tab PO Q12H PRN 08/25/18 08/17/21 [Excedrin Migraine Caplet] ALPRAZolam [Xanax] 1 mg PO DAILY PRN 03/03/21 08/19/21 Albuterol Inhaler [Ventolin Hfa 2 puff INHALATION DIRECTED PRN 08/17/21 08/19/21 Inhaler] Aspirin [[place] Aspirin EC] 81 mg PO DAILY 08/17/21 08/19/21 Multivitamins, Thera [Multivitamin 1 tab PO DAILY 08/17/21 08/19/21 (formulary)] Nebivolol HCl [Bystolic] 5 mg PO PC-SUPPER 08/17/21 08/19/21 Previous Rx's Medication Instructions Recorded HYDROcodone/APAP 5-325MG [[place] 5] 1 each PO Q6HR PRN #12 tab 08/15/23 Ketorolac [Toradol] 10 mg PO Q8HR #15 tab 08/15/23 Ondansetron Odt [Zofran Odt] 4 mg PO Q8HR PRN #10 tab 08/15/23 Allergies Allergy/AdvReac Type Severity Reaction Status Date / Time milk AdvReac Anaphylaxis Verified 08/17/21 10:19 wheat AdvReac Anaphylaxis Verified 08/17/21 10:19 Review of Systems ROS Statement: Those systems with pertinent positive or pertinent negative responses have been documented in the HPI. ROS Other: All systems not noted in ROS Statement are negative. Past Medical History Past Medical History: Asthma, Pneumonia Additional Past Medical History / Comment(s): hx KIDNEY STONES, occ migraines, heart murmer, History of Any Multi-Drug Resistant Organisms: None Reported Past Surgical History: Section, Hysterectomy, Orthopedic Surgery Additional Past Surgical History / Comment(s): surgery to remove kidney stone, charline hip reconstruction hip sockets, sinus surgery, C/S x 2 Past Anesthesia/Blood Transfusion Reactions: Motion Sickness, Postoperative Nausea & Vomiting (PONV) Past Psychological History: No Psychological Hx Reported - Past Family History Brother(s) Family Medical History: Cancer General Exam - General Exam Comments Initial Comments: Visual Physical Exam Vital signs reviewed General: Well-appearing, nontoxic, no acute distress. Head: Normocephalic, atraumatic Eyes: PERRLA, EOMI ENT: Airway patent Chest: Nonlabored breathing Skin: No visual rash, normal skin tone Neuro: Alert and oriented 3 Musculoskeletal: No gross abnormalities Limitations: no limitations General appearance: alert, in no apparent distress Head exam: Present: atraumatic, normocephalic, normal inspection Eye exam: Present: normal appearance, PERRL, EOMI. Absent: scleral icterus, conjunctival injection, periorbital swelling ENT exam: Present: normal exam, mucous membranes moist Neck exam: Present: normal inspection. Absent: tenderness, meningismus, lymphadenopathy Respiratory exam: Present: normal lung sounds bilaterally. Absent: respiratory distress, wheezes, rales, rhonchi, stridor Cardiovascular Exam: Present: regular rate, normal rhythm, normal heart sounds. Absent: systolic murmur, diastolic murmur, rubs, gallop, clicks GI/Abdominal exam: Present: soft, normal bowel sounds. Absent: distended, tenderness, guarding, rebound, rigid Back exam: Absent: CVA tenderness (R), CVA tenderness (L) Neurological exam: Present: alert Course Vital Signs 08/15/23 08/15/23 08/15/23 07:47 08:09 09:09 Temperature 98.7 F 98.5 F 98.4 F Pulse Rate 75 74 70 Respiratory 18 17 17 Rate Blood Pressure 162/75 139/91 152/104 O2 Sat by Pulse 98 100 100 Oximetry 08/15/23 09:49 Temperature Pulse Rate Respiratory Rate Blood Pressure 149/99 O2 Sat by Pulse Oximetry Medical Decision Making - Medical Decision Making I completed the quick note portion of this chart signed Samir Villatoro PA-C - Lab Data Result diagrams: 08/15/23 07:55 08/15/23 07:55 Lab Results 08/15/23 08/15/2308/15/23 Range/Units 07:55 07:55 07:55 WBC 6.4 (3.8-10.6) k/uL RBC 5.04 (3.80-5.40) m/uL Hgb 15.3 (11.4-16.0) gm/dL Hct 44.4 (34.0-46.0) % MCV 88.1 (80.0-100.0) fL MCH 30.4 (25.0-35.0) pg MCHC 34.5 (31.0-37.0) g/dL RDW 12.5 (11.5-15.5) % Plt Count 326 (150-450) k/uL MPV 7.9 Neutrophils % 65 % Lymphocytes % 25 % Monocytes % 5 % Eosinophils % 3 % Basophils % 1 % Neutrophils # 4.1 (1.3-7.7) k/uL Lymphocytes # 1.6 (1.0-4.8) k/uL Monocytes # 0.3 (0-1.0) k/uL Eosinophils # 0.2 (0-0.7) k/uL Basophils # 0.1 (0-0.2) k/uL Sodium 138 (137-145) mmol/L Potassium 4.4 (3.5-5.1) mmol/L Chloride 103 (98-107) mmol/L Carbon Dioxide 24 (22-30) mmol/L Anion Gap 11 mmol/L BUN 14 (7-17) mg/dL Creatinine 0.77 (0.52-1.04) mg/dL Est GFR (CKD-EPI)AfAm >90 (>60 ml/min/1.73 sqM) Est GFR (CKD-EPI)NonAf >90 (>60 ml/min/1.73 sqM) Glucose 107 H (74-99) mg/dL Calcium 9.5 (8.4-10.2) mg/dL Total Bilirubin 1.1 (0.2-1.3) mg/dL AST 17 (14-36) U/L ALT 16 (4-34) U/L Alkaline Phosphatase 56 (38-126) U/L Total Protein 6.6 (6.3-8.2) g/dL Albumin 4.3 (3.5-5.0) g/dL Lipase 65 (23-300) U/L Urine Color Colorless Urine Appearance Clear (Clear) Urine pH 6.5 (5.0-8.0) Ur Specific [place] 1.007 (1.001-1.035) Urine Protein Negative (Negative) Urine Glucose (UA) Negative (Negative) Urine Ketones Negative (Negative) Urine Blood Moderate H (Negative) Urine Nitrite Negative (Negative) Urine Bilirubin Negative (Negative) Urine Urobilinogen <2.0 (<2.0) mg/dL Ur Leukocyte Esterase Negative (Negative) Urine RBC 2 (0-5) /hpf Urine WBC 4 (0-5) /hpf Ur Squamous Epith Cells 2 (0-4) /hpf Urine Bacteria Many H (None) /hpf Disposition Clinical Impression: Flank pain, Kidney stone, Hematuria Disposition: HOME SELF-CARE Condition: Stable Instructions (If sedation given, give patient instructions): Kidney Stones (ED) Additional Instructions: Please return to the Emergency Department if symptoms worsen or any other concerns. Prescriptions: HYDROcodone/APAP 5-325MG [[place] 5] 1 each PO Q6HR PRN #12 tab PRN Reason: Pain Ketorolac [Toradol] 10 mg PO Q8HR #15 tab Ondansetron Odt [Zofran Odt] 4 mg PO Q8HR PRN #10 tab PRN Reason: Nausea Is patient prescribed a controlled substance at d/c from ED?: Yes When asked, does pt state using other controlled substances?: No If prescribed controlled substance>3 days was MAPS reviewed?: Prescribed <3 Days Referrals: Romeo Harrington DO [Primary Care Provider] - 1-2 days Alcon Montero MD [STAFF PHYSICIAN] - (Physician will review records and will contact you later this afternoon with results. ) Time of Disposition: 09:43
[2023-08-15] MEDS ORDERED: SODIUM CHLORIDE 0.9% 1,000 ML IV ONE (08:01)
[2023-08-15] MEDS ORDERED: SODIUM CHLORIDE 0.9% 500 ML 500 ML IV ONE (08:01)
[2023-08-15 08:07] LABS: Basophils # (A) 0.1 k/uL (0-0.2); Basophils % (A) 1 %; Eosinophils # (A) 0.2 k/uL (0-0.7); Eosinophils % (A) 3 %; HCT 44.4 % (34.0-46.0); HGB 15.3 gm/dL (11.4-16.0); Lymphocytes # (A) 1.6 k/uL (1.0-4.8); Lymphocytes % (A) 25 %; MCH 30.4 pg (25.0-35.0); MCHC 34.5 g/dL (31.0-37.0); MCV 88.1 fL (80.0-100.0); Mean Platelet Volume 7.9; Monocytes # (A) 0.3 k/uL (0-1.0); Monocytes % (A) 5 %; Neutrophils # (A) 4.1 k/uL (1.3-7.7); Neutrophils % (A) 65 %; Platelet Count 326 k/uL (150-450); RBC 5.04 m/uL (3.80-5.40); RDW 12.5 % (11.5-15.5); WBC 6.4 k/uL (3.8-10.6)
[2023-08-15 08:32] LABS: Appearance,Urine Clear (Clear); Bacteria,Urine Many /hpf; Bilirubin,Urine Negative (Negative); Blood,Urine Moderate (Negative); Color,Urine Colorless; Glucose,Urine (UA) Negative (Negative); Ketones,Urine Negative (Negative); Leukocyte Esterase,Urine Negative (Negative); Nitrite,Urine Negative (Negative); PH, Urine 6.5 (5.0-8.0); Protein,Urine Negative (Negative); RBC,Urine 2 /hpf (0-5); Specific Gravity,Urine 1.007 (1.001-1.035); Squamous Epithelial Cell,Urine 2 /hpf (0-4); Urobilinogen,Urine <2.0 mg/dL (<2.0); WBC,Urine 4 /hpf (0-5)
--- NOTE | 2023-08-15 08:33 | XR ---
EXAMINATION TYPE: XR KUB DATE OF EXAM: 08/15/2023 8:19 AM CLINICAL INDICATION:Female, 48 years old with history of Flank pain; [facility] COMPARISON: 09/02/2018.. TECHNIQUE: One radiographic view of the abdomen was obtained. FINDINGS: The bowel gas pattern is nonspecific without dilated loops of small or large bowel. There i s no evidence for organomegaly or pneumoperitoneum. The osseous structures are intact. No abnormal calcifications are present. Fecal material and gas are demonstrated throughout the colon and rectum. Left flank calculus measuring up to a 8 and 9 mm. Fixation hardware throughout the pelvis appears intact. Remote fracture of the right superior pubic r amus and deformity to the hips bilaterally with osteophyte formation. IMPRESSION: 1. Left flank calculus measuring up to a 8 and 9 mm. These could be renal in etiology. 2. Nonspecific bowel gas pattern without radiographic evidence for acute process. 3. 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
[2023-08-15 08:36] VITALS: RESP 17
[2023-08-15 08:46] LABS: ALT 16 U/L (4-34); AST 17 U/L (14-36); African American GFR (CKD) >90 (>60 ml/min/1.73 sqM); Albumin 4.3 g/dL (3.5-5.0); Alkaline Phosphatase 56 U/L (38-126); Anion Gap 11 mmol/L; Blood Urea Nitrogen 14 mg/dL (7-17); Calcium 9.5 mg/dL (8.4-10.2); Carbon Dioxide 24 mmol/L (22-30); Chloride 103 mmol/L (98-107); Lipase 65 U/L (23-300); Non-African American GFR(CKD) >90 (>60 ml/min/1.73 sqM); Potassium 4.4 mmol/L (3.5-5.1); Sodium 138 mmol/L (137-145); Total Bilirubin 1.1 mg/dL (0.2-1.3); Total Protein 6.6 g/dL (6.3-8.2)
[2023-08-15 08:47] LABS: Glucose 107 mg/dL (74-99)
[2023-08-15 09:36] VITALS: PULSE 70; TEMP 98.4
[2023-08-15 10:05] VITALS: BP 149/99
== END 2023-08-15 09:49 | disposition home or self-care (01) ==
LOC: EC 07:38
DX: N20.0 Calculus of kidney (principal); J45.909 Unspecified asthma, uncomplicated; Z79.82 Long term (current) use of aspirin; Z91.011 Allergy to milk products; Z91.018 Allergy to other foods
CPT/HCPCS: 36415; 74018; 80053; 81001; 83690; 85025; 96360; 99284

== ENCOUNTER → 2023-08-27 | Outpatient (CLI) | payer OTHER ==
--- NOTE | 2023-08-28 09:19 | CT ---
EXAMINATION TYPE: CT abdomen pelvis wo con DATE OF EXAM: 08/27/2023 COMPARISON: 08/25/2018 HISTORY: possible kidney stone. flank pain. CT DLP: 558.0 mGycm Examination of the solid and hollow viscera is limited given the lack of contrast. FINDINGS: LUNG BASES: No evidence for nodule. No evidence for infiltrate. LIVER/GB: The gallbladder is unremarkable. No space-occupying hepatic lesion. PANCREAS: No pancreatic mass identified. No inflammatory process seen. SPLEEN: No evidence for splenomegaly. No intrasplenic lesions seen. ADRENALS: No adrenal nodules identified. No evidence for thickening. KIDNEYS: 7 mm calculus mid pole right kidney. Proximal left ureteral calculus measuring 1 cm without significant hydronephrosis. There is a 3 mm calculus lower pole left kidney. BOWEL: Appendix has a normal appearance. No evidence of bowel obstruction. No inflammatory process. Lymph nodes: No evidence for adenopathy greater than 1 cm. Abdominal aorta: Atheromatous changes seen. No evidence for aneurysm. Genital organs: No significant abnormality. Other: No significant abnormality. IMPRESSION: 7 mm calculus mid pole right kidney. Proximal left ureteral calculus measuring 1 cm without significa nt hydronephrosis. There is a 3 mm calculus lower pole left kidney.
== END | disposition home or self-care (01) ==
LOC: RADCTMAIN 15:03
PROVIDERS: ATTEND Urology
DX: N20.2 Calculus of kidney with calculus of ureter (principal); R31.0 Gross hematuria
CPT/HCPCS: 74176

== ENCOUNTER 2023-09-06 10:58 | Day surgery (SDC) | payer OTHER ==
[2023-09-04 09:11] VITALS: BMI 28.1
--- NOTE | 2023-09-05 18:56 | P.GSHP ---
History of Present Illness H&P Date: 09/05/23 48 yo female recently in the office with bilateral flank pain, r>l. She had a kub that appeared to show a left renal stone.. I did a ct scan that identified a 6 mm proximal ureteralstone on the left without much hydro. She has two 5-6 mm non obstructing stone in the right kidney. She stated that her medellin was severer on the right however. Her pain on the right was in the right posterior rib and the right si joint, I explained to her that I wasnt certain that the stones on her kidney were causing her the pain that she was experiencing. She comes for left ureteroscopy with lasdr litho and right retrograde pyelogram with possible ureteroscopy with laser lithotripsy if indicated. - Constitutional Constitutional: Denies chills, Denies fever - EENT Eyes: denies blurred vision, denies pain Ears, nose, mouth and throat: Denies headache, Denies sore throat - Cardiovascular Cardiovascular: Denies chest pain, Denies shortness of breath - Respiratory Respiratory: Denies cough, Denies 7 - Gastrointestinal Gastrointestinal: Denies abdominal pain, Denies diarrhea, Denies nausea, Denies vomiting - Genitourinary (Female) Genitourinary: Denies dysuria, Denies hematuria - Genitourinary (Male) Genitourinary: Denies dysuria, Denies hematuria - Musculoskeletal Musculoskeletal: Denies myalgias - Integumentary Integumentary: Denies pruritus, Denies rash - Neurological Neurological: Denies numbness, Denies weakness - Psychiatric Psychiatric: Denies anxiety, Denies depression - Endocrine Endocrine: Denies fatigue, Denies weight change Past Medical History Past Medical History: Asthma, Hypertension, Osteoarthritis (OA), Pneumonia Additional Past Medical History / Comment(s): Hx of and current kidney stones, occasional migraines, heart murmur, hx aortic spasms. History of Any Multi-Drug Resistant Organisms: None Reported Past Surgical History: Section, Hysterectomy, Orthopedic Surgery Additional Past Surgical History / Comment(s): Surgery to remove kidney stone, bilateral hip socket reconstruction, sinus surgery, Section X2. Past Anesthesia/Blood Transfusion Reactions: Motion Sickness, Postoperative Nausea & Vomiting (PONV) Past Psychological History: ADD/ADHD Additional Psychological History / Comment(s): ADHD. Smoking Status: Never smoker Past Alcohol Use History: None Reported Past Drug Use History: None Reported - Past Family History Brother(s) Family Medical History: Cancer Medications and Allergies Home Medications Medication Instructions Recorded Confirmed Type Lisdexamfetamine Dimesylate 70 mg PO DAILY 09/04/23 09/04/23 History [Vyvanse] amLODIPine BESYLATE [Amlodipine 5 mg PO HS 09/04/23 09/04/23 History Besylate] Allergies Allergy/AdvReac Type Severity Reaction Status Date / Time milk Allergy Mild Anaphylaxis Verified 09/04/23 08:48 wheat Allergy Mild Anaphylaxis Verified 09/04/23 08:48 Surgical - Exam - General well developed, well nourished, no distress - Eyes normal ocular movement, no icteric - ENT no hearing loss, no congestion - Neck no masses, trachea midline - Respiratory normal respiratory effort, clear to auscultation - Abdomen Abdomen: soft, non tender, no guarding, no rigid, no rebound - Integumentary no rash, no abnormal pigmentation - Neurologic no disoriented, no combative - Psychiatric oriented to time, oriented to person, oriented to place, speech is normal, memory intact Results - Imaging Abdominal x-ray: report reviewed, image reviewed CT scan - abdomen: report reviewed, image reviewed CT scan - pelvis: report reviewed, image reviewed Assessment and Plan Assessment: Impression: left ureteral stone. bilateral back pain rt > lt. small non obstructing right renal stones Plan: cysto with left ureteroscopy , laser lithotripsy. right retrograde pyelogram with possible ureteroscopy and laser lithotripsy
[~2023-09-06 10:58] MED LIST changes: -ALPRAZolam 0.25 MG TAB PO PRN; -ALPRAZolam 0.5 MG TAB PO PRN; -ASPIRIN 325 MG TAB PO STA; +DEXAMETHASONE SOD PHOSPHATE 4 MG/ML 1 ML VIAL IV ONE; -HEPARIN SODIUM,PORCINE 10,000 UNIT in SODIUM CHLORIDE 0.9% 1,000 ML IRRIGATION PRN; -HEPARIN SODIUM,PORCINE 2,500 UNIT in SODIUM CHLORIDE 0.9% 250 ML IRRIGATION PRN; +HYDROmorphone 0.5 MG/0.5 ML SYRINGE IVP PRN; +LACTATED RINGERS 1,000 ML IV SCH; +LIDOCAINE 1% (10MG/ML) FOR IV START INTRADERMA PRN; -NITROGLYCERIN SL TABS 0.4 MG TAB SUBLINGUAL PRN; +ONDANSETRON 4 MG/2 ML VIAL IVP ONE; -SODIUM CHLORIDE 0.9% 1,000 ML in EMPTY BAG 1 BAG IV SCH; +droPERidol 5 MG/2 ML VIAL IVP PRN
[2023-09-06 11:47] VITALS: RESP 16; TEMP 98.9
--- NOTE | 2023-09-06 11:57 | XR ---
Supine abdomen. DATE: 09/06/2023. COMPARISON: None available. CLINICAL HISTORY: Kidney stones. IMPRESSION: The bowel gas pattern is nonobstructive. There is a moderate amount of stool seen throughout the colo n. There are 2 calcifications overlying the right renal contour measuring 4 and 4.6 mm. Evaluation of the renal contours is otherwise limited due to significant overlying stool and bowel gas. There is no suspicious calcifications seen along the expected courses of the ureters bilaterally. There is multiple surgical screws seen within the iliac bones bilaterally and mild to moderate degene rative joint space changes bilaterally.
[2023-09-06] MEDS ORDERED: PROPOFOL 10 MG/ML 20 ML VIAL IV ONE (12:33)
[2023-09-06] MEDS ORDERED: LIDOCAINE 1% INJ 10MG/ML (20 ML MDV) ONE (12:33)
[2023-09-06] MEDS ORDERED: KETOROLAC 15 MG/ML 1 ML VIAL ONE (12:33)
[2023-09-06] MEDS ORDERED: fentaNYL (PF) 50 MCG/ML 2 ML AMP ONE ×2 (12:33→14:41)
[2023-09-06] MEDS ORDERED: MIDAZOLAM 2 MG/2 ML VIAL ONE (12:33)
--- NOTE | 2023-09-06 13:50 | P.OP ---
Date of Procedure: 09/06/23 Preoperative Diagnosis: Left ureteral stone, right renal stones, bilateral flank pain Postoperative Diagnosis: Same Procedure(s) Performed: Cystoscopy with bilateral ureteroscopy laser lithotripsy and stone basketing Anesthesia: IVORY Surgeon: Alcon Montero Estimated Blood Loss (ml): 0 Pathology: other (Stone) Condition: stable Disposition: PACU Indications for Procedure: Patient is 48. She came to see me bilateral flank pain. She had been in the emergency room and a computed tomography scan identified by the left renal stone stone on KUB. I did a computed tomography scan identifying a left proximal ureteral stone with obstruction and 2 small right renal stones. She has bilateral back pain. Back pain does not appear to be urologic but with the significant finding on the left the persistent pain on the right I will do bilateral ureteroscopy Description of Procedure: Patient brought to the operating suite. Given general anesthetic. Placed lithotomy position with a sterile prep and drape. Cystoscopy Foroblique lens and 21-Polish sheath identifies a normal urethra. The bladder snow unremarkable. The left ureteral orifice is identified and an 035 wires passed up the left ureter into the renal pelvis by the stone. I then over the left ureteral wire pass a [id number] reentry sheath up to distal to the left ureteral stone. The inner sheath is removed. I passed the flexible ureteroscope up to the stone and with the 272 probe I break the stone into tiny fragments basket the largest of the fragments. I then do a pullout ureteroscopy to make sure that no remaining stones or edema and there is none. I then look at the right ureteral orifice. An pass an 035 wire up the right ureter into the kidney. Over the wires passed an [id number] reentry sheath up into the right kidney the inner sheath is removed. I then pass a flexible ureteroscope up into the kidney and pass into a midpole calyx where the first of the 2 stones seen. With the 272 probe the stone was broken into tiny fragments. I do the same to the second stone in a calyx just inferior to that. I basket the largest fragments of each of the broken stone. I do pullout ureteroscopy there is no remaining stones or obstruction. The bladder strain the patient is awake and returned recovery in good condition. Blood loss is minimal. She tolerated procedure well be discharged home upon recovery and found the office in 2 weeks.
--- NOTE | 2023-09-06 14:25 | FL ---
EXAMINATION TYPE: FL guidance operating room Intraoperative/procedural fluoroscopic services were pro vided. Total fluoroscopy time is 6 seconds with a total of 2 submitted images to PACS. Please see the operative/procedural note for further details. DAP: 226.30 Gycm2
[2023-09-06] MEDS ORDERED: HYDROcodone/APAP 5-325MG 1 EACH TAB ONE (14:37)
[2023-09-06] MEDS ORDERED: ONDANSETRON 4 MG/2 ML VIAL ONE (14:43)
[2023-09-06] MEDS ORDERED: ONDANSETRON 4 MG/2 ML VIAL IVP ONE (14:43)
[2023-09-06] MEDS ORDERED: fentaNYL (PF) 50 MCG/ML 2 ML AMP IVP ONE (14:43)
[2023-09-06] MEDS ORDERED: LACTATED RINGERS 1,000 ML IV ONE (14:45)
[2023-09-06 15:08] VITALS: BP 146/90; PULSE 65
== END 2023-09-06 15:48 | disposition home or self-care (01) ==
LOC: OR 10:58
PROVIDERS: ATTEND Urology
DX: N20.2 Calculus of kidney with calculus of ureter (principal); J45.909 Unspecified asthma, uncomplicated; I10 Essential (primary) hypertension; M19.90 Unspecified osteoarthritis, unspecified site; Z87.442 Personal history of urinary calculi; Z98.891 History of uterine scar from previous surgery; Z90.710 Acquired absence of both cervix and uterus; Z79.899 Other long term (current) drug therapy
CPT/HCPCS: 82365; 74018; 52353; C1769; J2250; J1100; J0690; J2405; J2001; J3010; J1885; J2704